=== PATIENT | female | born 1970 | race Caucasian/White ===

== ENCOUNTER → 2022-05-15 11:07 | Outpatient (CLI) | payer MEDICARE, BC, SELFPAY ==
--- NOTE | 2022-05-15 11:16 | XR_ITS ---
FINAL REPORT CLINICAL HISTORY: pain FINDINGS: LEFT FOOT Three views were obtained. There is no acute fracture or dislocation. There are mild degenerative changes of the 1st metatarsophalangeal joint. Pes planus deformity is identified. There are mild degenerative changes of the midfoot. No soft tissue abnormality is identified. IMPRESSION: Degenerative and chronic appearing findings as above. Reviewed, Interpreted and Dictated by Stan Toscano III, MD Transcribed by Yessy Osborn Authenticated and [facility]
--- NOTE | 2022-05-15 11:16 | XR_ITS ---
FINAL REPORT CLINICAL HISTORY: pain FINDINGS: LEFT ANKLE Three views were obtained. There is no acute fracture or dislocation. Mild degenerative changes are present. There is a possible loose body posteriorly measuring 7 mm. IMPRESSION: Degenerative changes and possible loose body. Reviewed, Interpreted and Dictated by Stan Toscano III, MD Transcribed by Yessy Osbron Authenticated and [facility]
--- NOTE | 2022-05-15 11:16 | XR_ITS ---
FINAL REPORT CLINICAL HISTORY: pain FINDINGS: RIGHT FOOT Three views were obtained. There is no acute fracture or dislocation. There are moderate degenerative changes of the 1st metatarsophalangeal joint. Multiple subchondral cysts are seen in the 1st metatarsal head. There is presumed postoperative change involving the 5th proximal phalanx distally. Pes planus deformity is identified. There is a plantar calcaneal spur. No soft tissue abnormality is identified. IMPRESSION: Degenerative and chronic appearing findings as detailed above. Reviewed, Interpreted and Dictated by Stan Toscano III, MD Transcribed by Yessy Osborn Authenticated and [facility]
--- NOTE | 2022-05-15 11:16 | XR_ITS ---
FINAL REPORT CLINICAL HISTORY: pain FINDINGS: RIGHT ANKLE Three views were obtained. There is no acute fracture or dislocation. Mild degenerative changes are present. There is a small plantar calcaneal spur. There is chronic calcification inferior to the medial malleolus. IMPRESSION: Degenerative and chronic appearing findings. Reviewed, Interpreted and Dictated by Stan Toscano III, MD Transcribed by Yessy Osborn Authenticated and [facility]
== END ==
PROVIDERS: PCP Family Medicine; Visit Provider Podiatrist
DX: M79.672 Pain in left foot (principal); M79.671 Pain in right foot; M25.572 Pain in left ankle and joints of left foot; M25.571 Pain in right ankle and joints of right foot
CPT/HCPCS: 73610; 73630

== ENCOUNTER → 2023-02-04 11:16 | Outpatient (CLI) | payer MEDICARE, BC, SELFPAY ==
--- NOTE | 2023-02-04 11:22 | XR_ITS ---
FINAL REPORT CLINICAL HISTORY: foot pain FINDINGS: Left foot Three views were obtained. There is no acute fracture or dislocation. There is moderate joint space narrowing of the 1st metatarsophalangeal joint. There are hypertrophic changes at the articulation between the accessory navicular and main body of the navicular. IMPRESSION: Chronic appearing findings. Reviewed, Interpreted and Dictated by Donn Champion MD Transcribed by Yessy Osborn Authenticated and [facility]
--- NOTE | 2023-02-04 11:22 | XR_ITS ---
FINAL REPORT CLINICAL HISTORY: foot pain FINDINGS: Right foot Three views were obtained. There is no acute fracture or dislocation. There are moderate hypertrophic changes involving the 1st metatarsophalangeal joint. There is a large accessory navicular. IMPRESSION: Degenerative and chronic appearing changes. Reviewed, Interpreted and Dictated by Donn Champion MD Transcribed by Yessy Osborn Authenticated and . [facility]
--- NOTE | 2023-02-04 11:22 | XR_ITS ---
FINAL REPORT CLINICAL HISTORY: ankle pain FINDINGS: Left ankle Three views were obtained. There is no acute fracture or dislocation. There are large os trigona, largest measures 1.3 cm. A 2nd focus measures 9 mm. The mortise is intact. IMPRESSION: Chronic appearing findings. Reviewed, Interpreted and Dictated by Donn Champion MD Transcribed by Yessy Osborn Authenticated and [facility]
--- NOTE | 2023-02-04 11:22 | XR_ITS ---
FINAL REPORT CLINICAL HISTORY: ankle pain FINDINGS: Right ankle Three views were obtained. There is no acute fracture or dislocation. There is a well corticated ossific density inferior to the medial malleolus measuring 7 mm which may be due to old trauma. Small plantar spur is identified. IMPRESSION: Chronic appearing findings. Reviewed, Interpreted and Dictated by Donn Champion MD Transcribed by Yessy Osbonr Authenticated and [facility]
== END ==
PROVIDERS: PCP Family Medicine; Visit Provider Podiatrist
DX: M25.572 Pain in left ankle and joints of left foot; M79.672 Pain in left foot; M25.571 Pain in right ankle and joints of right foot; M79.671 Pain in right foot
CPT/HCPCS: 73610; 73630

== ENCOUNTER → 2023-05-22 13:08 | Outpatient (CLI) | payer MEDICARE, BC, SELFPAY ==
--- NOTE | 2023-05-22 13:08 | MR_ITS ---
FINAL REPORT CLINICAL HISTORY: Ankle Pain MEDIAL ANKLE VANIA FINDINGS: Multiplanar MR imaging of the left ankle was performed without contrast. Motion artifact is noted on many of the images. Motion artifact is noted on many of the images. No acute fracture is identified. A chronic bony fragment or loose body is seen adjacent to the proximal dorsal aspect of the first metatarsal. Mild degenerative changes are noted of the ankle and midfoot. There are presumed loose bodies superior to the calcaneus measuring up to 13 mm. An accessory navicular is seen with multiple subchondral cysts in the medial navicular and the accessory navicular which may represent accessory navicular syndrome. Small osteochondral lesions are seen of the posterior talar dome. There is irregularity of the anterior aspect of the talofibular ligament worrisome for a chronic partial tear. There is posterior tibial, flexor digitorum longus and peroneus longus tenosynovitis. The posterior plantar aponeurosis is intact. No significant joint effusion is seen. The musculature is intact. A 7 mm ganglion cyst is seen superior to the talonavicular joint. There is also a 15 mm ganglion cyst lateral to the distal talus. IMPRESSION: Mild degenerative changes with several presumed loose bodies as described. Accessory navicular with several subchondral cysts in this region worrisome for accessory navicular syndrome. Findings worrisome for a partial tear of the anterior talofibular ligament. Posterior tibial, flexor digitorum longus and peroneus longus tenosynovitis. Ganglion cyst adjacent to the distal talus as described. Authenticated and [facility]
--- NOTE | 2023-05-22 13:08 | CT_ITS ---
FINAL REPORT CLINICAL HISTORY: left Foot Pain FINDINGS: CT LEFT FOOT WITHOUT CONTRAST TECHNIQUE: Axial, reformatted, and 3D images were obtained of the left foot. This study was performed with techniques to keep radiation doses as low as reasonably achievable, (ALARA). Individualized dose reduction techniques using automated exposure control or adjustment of mA and/or kV according to the patient's size were employed. FINDINGS: There are mild degenerative changes. There is a calcification or bony fragment adjacent to the dorsal proximal aspect of the first metatarsal which may represent a chronic fracture. There is a small nondisplaced fracture of the anterior process of the calcaneus favored to be subacute or chronic. There are several presumed loose bodies in the posterior aspect of the ankle. There is an accessory navicular with multiple subchondral cyst in the accessory navicular and medial navicular. An accessory navicular syndrome is not excluded. IMPRESSION: Fracture of the anterior process of the calcaneus. Accessory navicular syndrome. Degenerative and chronic changes as described. Reviewed, Interpreted and Dictated by Stan Toscano III, MD Transcribed by Shirley Shelton Authenticated and [facility]
== END ==
LOC: RAD 13:08
PROVIDERS: PCP Family Medicine; Visit Provider Nurse Practitioner Family
DX: M79.672 Pain in left foot (principal); M25.572 Pain in left ankle and joints of left foot
CPT/HCPCS: 73700; 73721